=== PATIENT | male | born 1965 | race African-American/Black ===

== ENCOUNTER 2018-09-17 23:52 | Emergency (ER) | payer OTHER ==
[~2018-09-17] VITALS: Ht 152.4 cm; Wt 70.3 kg
[~2018-09-17 23:52] MED LIST: KETO10TA2 PO; LEVSIN0.125 MG PO; ORPH100T PO; PROTONIX40 M1 PO; ZANTAC300 MG PO; ZOFRAN4 MG PO
[2018-09-18] MEDS ORDERED: PEPCID40 MG PO (03:25)
[2018-09-18] MEDS ORDERED: ZYNCOF 20-400120 ML PO (03:25)
[2018-09-18] MEDS ORDERED: ZITHROMAX500 MG PO (03:25)
[2018-09-18] MEDS ORDERED: PHENERGAN25 MG PO (03:25)
== END 2018-09-18 03:26 | disposition home or self-care (01) ==
LOC: ER 23:52
DX: B34.9 Viral infection, unspecified (principal); J40 Bronchitis, not specified as acute or chronic